=== PATIENT | male | born 1935 | race Caucasian/White ===

== ENCOUNTER 2024-05-02 16:03 | Observation (INO) | payer BC ==
[2024-05-02 16:41] VITALS: BMI 24.3
[2024-05-02 18:29] LABS: BASO % 0.8 % (0-2.0); EOS % 0.9 % (0-4.5); HEMATOCRIT 39.5 % (35.4-49); HEMOGLOBIN 13.8 GM/dL (11.7-16.9); LYMPH % 12.6 % (8-40); MCH 31.6 pg (25.7-33.7); MCHC 34.9 g/dl (32.0-35.9); MEAN CELL VOLUME 90.7 fl (80-96); MEAN PLT VOLUME 7.9 fl (7.5-11.1); MONO % 10.2 % (3.8-10.2); NEUT % 75.5 % (42.8-82.8); PLATELET COUNT 256 10^3/uL (134-434); RBC 4.35 M/mm3 (4.00-5.60); RDW 14.4 % (11.9-15.9); WHITE BLOOD COUNT 10.3 K/mm3 (4.0-10.0)
[2024-05-02 18:55] LABS: ALBUMIN 3.2 g/dl (3.4-5.0); CALCIUM 9.5 mg/dL (8.5-10.1)
[2024-05-02 18:56] LABS: BLOOD UREA NITROGEN 28.1 mg/dL (7-18)
[2024-05-02 18:59] LABS: CREATININE 1.6 mg/dL (0.55-1.3)
[2024-05-02 19:01] LABS: BILIRUBIN,TOTAL 0.7 mg/dL (0.2-1); TOT PROT 7.4 g/dl (6.4-8.2)
[2024-05-02] MEDS ORDERED: POTASSIUM CHLORIDE TABS 20 MEQ TABLET.ER (FP) PO ONE (19:28)
[2024-05-02] MEDS: SODIUM CHLORIDE 0.9% 500 ML INFUS.BAG IV ONE (19:42)
[2024-05-02] MEDS: POTASSIUM CHLORIDE TABS 20 MEQ TABLET.ER (FP) PO ONE (19:43)
[2024-05-02] MEDS: MAGNESIUM SULF 50% (8.12 MEQ/2 ML-1 GM VIAL) IVPB ONE (20:57)
[2024-05-02] MEDS: NAPH,MB-DB/K PH,MBDB POWDER PACKET PO ONE (21:39)
[2024-05-02 22:24] LABS: EPI CELLS 8 /uL (0-25.1); HYALINE CASTS 4 /uL (0-3.1); PH,URINE 5.5 (5.0-8.0); URINE APPEARANCE CLOUDY; URINE BACTERIA 7 /uL (0-1359); URINE BILIRUBIN NEGATIVE (NEGATIVE); URINE COLOR YELLOW; URINE GLUCOSE (UA) NEGATIVE (NEGATIVE); URINE KETONE NEGATIVE (NEGATIVE); URINE LEUK ESTERASE TRACE (NEGATIVE); URINE NITRITE NEGATIVE (NEGATIVE); URINE PROTEIN 2+ (NEGATIVE); URINE WBC 93 /uL (0-25.8)
[2024-05-02] MEDS: APIXABAN 2.5 MG TABLET PO SCH (23:59)
[2024-05-03 00:18] LABS: URINE RBC 1046.1 /uL (0-23.9)
[2024-05-03] MEDS: LEVOTHYROXINE NA 25 MCG TABLET (FP) PO SCH (06:27)
[2024-05-03 07:25] LABS: BASO % 0.5 % (0-2.0); EOS % 1.3 % (0-4.5); HEMATOCRIT 38.7 % (35.4-49); HEMOGLOBIN 13.5 GM/dL (11.7-16.9); LYMPH % 9.4 % (8-40); MCH 31.4 pg (25.7-33.7); MCHC 34.8 g/dl (32.0-35.9); MEAN CELL VOLUME 90.4 fl (80-96); MEAN PLT VOLUME 8.2 fl (7.5-11.1); MONO % 7.6 % (3.8-10.2); NEUT % 81.2 % (42.8-82.8); PLATELET COUNT 226 10^3/uL (134-434); RBC 4.28 M/mm3 (4.00-5.60); RDW 14.3 % (11.9-15.9); WHITE BLOOD COUNT 10.1 K/mm3 (4.0-10.0)
[2024-05-03 07:26] LABS: CALCIUM 9.2 mg/dL (8.5-10.1)
[2024-05-03 07:27] LABS: BLOOD UREA NITROGEN 19.2 mg/dL (7-18)
[2024-05-03 07:30] LABS: CREATININE 1.1 mg/dL (0.55-1.3)
[2024-05-03] MEDS: METOPROLOL TARTRATE 25 MG TABLET (FP) PO SCH (10:37)
[2024-05-03] MEDS: FOLIC ACID 1 MG TABLET (FP) PO SCH (10:37)
[2024-05-03] MEDS: MULTIVITAMINS (DAILY MVI) TABLET (FP) PO SCH (10:37)
[2024-05-03] MEDS: SODIUM CHLORIDE 0.9%/KCL 20 MEQ/1,000 ML INFUS.BAG IV SCH (20:39)
[2024-05-03] MEDS: ROSUVASTATIN CA 10 MG TABLET PO SCH (21:21)
[2024-05-03] MEDS: MONTELUKAST NA 10 MG TABLET PO SCH (21:21)
[2024-05-03] MEDS: DONEPEZIL HCL 5 MG TABLET (FP) PO SCH (21:21)
[2024-05-03 23:35] VITALS: RESP 20
[2024-05-04 07:23] LABS: POTASSIUM 3.3 mmol/L (3.5-5.1)
[2024-05-04 07:30] LABS: CALCIUM 9.6 mg/dL (8.5-10.1)
[2024-05-04 07:31] LABS: ALBUMIN 3.1 g/dl (3.4-5.0); BLOOD UREA NITROGEN 15.4 mg/dL (7-18); MAGNESIUM 1.9 mg/dL (1.8-2.4)
[2024-05-04 07:33] LABS: TOT PROT 7.1 g/dl (6.4-8.2)
[2024-05-04 07:34] LABS: CREATININE 0.9 mg/dL (0.55-1.3); PHOSPHOROUS 2.4 mg/dL (2.5-4.9)
[2024-05-04] MEDS: POTASSIUM CHLORIDE TABS 20 MEQ TABLET.ER (FP) PO ONE (10:06)
[2024-05-04 12:02] LABS: HEMATOCRIT 41.6 % (35.4-49); HEMOGLOBIN 14.2 GM/dL (11.7-16.9); MCH 30.8 pg (25.7-33.7); MCHC 34.1 g/dl (32.0-35.9); MEAN CELL VOLUME 90.2 fl (80-96); MEAN PLT VOLUME 7.8 fl (7.5-11.1); PLATELET COUNT 272 10^3/uL (134-434); RBC 4.62 M/mm3 (4.00-5.60); RDW 14.7 % (11.9-15.9); WHITE BLOOD COUNT 9.9 K/mm3 (4.0-10.0)
[2024-05-04 15:29] VITALS: BP 122/81; PULSE 95; TEMP 98.4
== END 2024-05-04 15:58 | disposition home or self-care (01) ==
LOC: JER 16:03 → JERBED 20:36 → J4W 05-03 01:37
PROVIDERS: ADMIT Internal Medicine; ATTEND Internal Medicine
PROC: 3E033GC Introduction of Other Therapeutic Substance into Peripheral Vein, Percutaneous Approach (ICD-10-PCS; principal; 2024-05-02)
PROC: 3E0337Z Introduction of Electrolytic and Water Balance Substance into Peripheral Vein, Percutaneous Approach (ICD-10-PCS; 2024-05-02)
DX: N17.9 Acute kidney failure, unspecified (principal); G30.9 Alzheimer's disease, unspecified; I48.91 Unspecified atrial fibrillation; E86.0 Dehydration; E11.9 Type 2 diabetes mellitus without complications; E87.6 Hypokalemia; Z79.01 Long term (current) use of anticoagulants; W18.39XA Other fall on same level, initial encounter; Y93.89 Activity, other specified; R94.4 Abnormal results of kidney function studies; Y92.89 Other specified places as the place of occurrence of the external cause; R29.6 Repeated falls; E03.9 Hypothyroidism, unspecified; I95.9 Hypotension, unspecified; Z87.891 Personal history of nicotine dependence
CPT/HCPCS: 0241U-QW; 36415; 70450-TC; 71046-TC-FY; 72125-TC; 72170-TC-FY; 80048; 80053; 81003; 82962; 83605; 83735; 84100; 84443; 84484; 85025; 85027; 87086; 93005; 93010; 96361; 96374; 97116-GP; 97161-GP; 99285-25; G0378